=== PATIENT | male | born 1990 | race Caucasian/White ===

== ENCOUNTER 2019-06-21 15:02 | Emergency (ER) | payer SELFPAY ==
[~2019-06-21] VITALS: Ht 165.1 cm; Wt 63.5 kg
[2019-06-21 15:24] VITALS: BP_SYST 138
== END 2019-06-21 16:00 | disposition left against medical advice (07) ==
LOC: SED 15:02
DX: R07.81 Pleurodynia (principal); Z53.21 Procedure and treatment not carried out due to patient leaving prior to being seen by health care provider